=== PATIENT | male | born 1955 | race Caucasian/White ===

== ENCOUNTER 2019-09-27 10:28 | Inpatient (IN) | payer OTHER ==
[~2019-09-27] VITALS: Ht 160 cm; Wt 124.7 kg
[2019-10-17] MEDS ORDERED: RENO CAPS SOFTGE1 MG PO (08:22)
[2019-10-17] MEDS ORDERED: PLAVIX75 MG PO (08:25)
[2019-10-17] MEDS ORDERED: LANTUS SOL100 UNIT/1 SQ (08:25)
[2019-10-17] MEDS ORDERED: GABAPENTIN800 MG PO (08:26)
[2019-10-17] MEDS ORDERED: METFORMIN HCL1000 M2 PO (08:27)
[2019-10-17] MEDS ORDERED: TAMS0.4C PO (08:27)
[2019-10-17] MEDS ORDERED: COZAAR100 MG PO (08:27)
[2019-10-17] MEDS ORDERED: FOLIC ACID0.8 M1 PO (08:27)
[2019-10-17] MEDS ORDERED: VITAMIN B-121000 MC2 SL (08:28)
[2019-10-17] MEDS ORDERED: LIPITOR20 MG PO (08:28)
[2019-10-17] MEDS ORDERED: VITAMIN D32000 UNI1 PO (08:28)
[2019-10-17] MEDS ORDERED: JARDIANCE10 MG PO (08:29)
[2019-10-17] MEDS ORDERED: TORSEMIDE10 MG PO (08:29)
[2019-10-17] MEDS ORDERED: NITROGLYCERIN0.4 MG SL (08:31)
== END 2019-10-24 21:24 | disposition expired | DRG 329 ==
LOC: EDSTATUS 10-16 09:45 → ADM 10-16 09:45 → SURG 10-23 07:45 → O/R 10-23 07:45 → SURH 10-23 09:45 → SURG 10-24 02:45 → O/R 10-24 15:27
PROVIDERS: ADMIT Surgery
PROC: 07TB4ZZ Resection of Mesenteric Lymphatic, Percutaneous Endoscopic Approach (ICD-10-PCS; 2019-10-23)
PROC: 0DTE4ZZ Resection of Large Intestine, Percutaneous Endoscopic Approach (ICD-10-PCS; principal; 2019-10-23 12:00)
PROC: 4A033R1 Measurement of Arterial Saturation, Peripheral, Percutaneous Approach (ICD-10-PCS; 2019-10-24)
PROC: 02HV33Z Insertion of Infusion Device into Superior Vena Cava, Percutaneous Approach (ICD-10-PCS; 2019-10-24)
PROC: B246ZZZ Ultrasonography of Right and Left Heart (ICD-10-PCS; 2019-10-24)
PROC: 5A09457 Assistance with Respiratory Ventilation, 24-96 Consecutive Hours, Continuous Positive Airway Pressure (ICD-10-PCS; 2019-10-24)
DX: C18.7 Malignant neoplasm of sigmoid colon (principal); J95.822 Acute and chronic postprocedural respiratory failure; I50.33 Acute on chronic diastolic (congestive) heart failure; A41.9 Sepsis, unspecified organism; R65.21 Severe sepsis with septic shock; I42.8 Other cardiomyopathies; I25.810 Atherosclerosis of coronary artery bypass graft(s) without angina pectoris; J95.89 Other postprocedural complications and disorders of respiratory system, not elsewhere classified; J98.11 Atelectasis; E87.2 Acidosis; N17.8 Other acute kidney failure; E27.49 Other adrenocortical insufficiency; I31.3 Pericardial effusion (noninflammatory); E44.0 Moderate protein-calorie malnutrition; I08.1 Rheumatic disorders of both mitral and tricuspid valves; I11.0 Hypertensive heart disease with heart failure; E66.01 Morbid (severe) obesity due to excess calories; R59.0 Localized enlarged lymph nodes; K63.89 Other specified diseases of intestine; E11.40 Type 2 diabetes mellitus with diabetic neuropathy, unspecified; Z79.4 Long term (current) use of insulin

== ENCOUNTER → 2019-10-16 06:40 | Outpatient (CLI) | payer OTHER ==
[~2019-10-16 06:40] MED LIST: COZAAR100 MG PO; FOLIC ACID0.8 M1 PO; GABAPENTIN800 MG PO; JARDIANCE10 MG PO; LANTUS SOL100 UNIT/1 SQ; LIPITOR20 MG PO; METFORMIN HCL1000 M2 PO; NITROGLYCERIN0.4 MG SL; PLAVIX75 MG PO; RENO CAPS SOFTGE1 MG PO; TAMS0.4C PO; TORSEMIDE10 MG PO; VITAMIN B-121000 MC2 SL; VITAMIN D32000 UNI1 PO
== END | disposition home or self-care (01) ==
LOC: LAB 06:40
DX: C18.7 Malignant neoplasm of sigmoid colon (principal); D37.4 Neoplasm of uncertain behavior of colon; D12.3 Benign neoplasm of transverse colon; I10 Essential (primary) hypertension